=== PATIENT | female | born 1970 | race Caucasian/White ===

== ENCOUNTER 2019-11-26 02:28 | Outpatient (CLI) | payer BC, SELFPAY ==
[2019-11-26 18:16] LABS: SARS-CoV-2 RNA PCR Negative
== END 2019-11-26 02:29 | disposition home or self-care (01) ==
LOC: ANHCOVIDDT 02:28
PROVIDERS: PCP Family Medicine; Visit Provider Obstetrics & Gynecology
DX: Z01.812 Encounter for preprocedural laboratory examination (principal); Z20.828 Contact with and (suspected) exposure to other viral communicable diseases
CPT/HCPCS: 87635; C9803; U0003

== ENCOUNTER 2019-11-28 02:06 | Day surgery (SDC) | payer BC, SELFPAY ==
[2019-11-22 17:17] VITALS: BMI 30.6
[2019-11-28] MEDS: LACTATED RINGERS 1,000 ML 30 ML IV CONT ×2 (11:23→14:38)
[2019-11-28] MEDS: ACETAMINOPHEN 500 MG TABLET 1000 MG PO (11:23)
[2019-11-28 11:36] VITALS: BP 120/71; PULSE 65; TEMP 36.8; O2SAT 100
--- NOTE | 2019-11-28 11:50 | PM.IMHP ---
H&P: HPI History of Present Illness Date/Time: 11/28/19 11:50 Chief complaint: irregular bleeding Narrative: 49 y/o with heavy, long-lasting menses that are becoming more frequent and less predictable. Review of Systems Review of Systems: All systems reviewed & are unremarkable except as noted in HPI and below PMFSH Surgical History Surgical History (Updated 11/28/19 @ 11:51 by Vishnu Orosco MD) History of laparotomy Social History Social History Smoking status: Never smoker Alcohol intake: current Substance use: never Living arrangements: with family Gender identity (if verbalized by the patient): Female Sexual Orientation (if Verbalized by the Patient): Straight or Heterosexual Spiritual care concerns: No Comments 3 vaginal deliveries, largest weighing 8 lbs. Meds Home Medications and Allergies Home Medications Medication Instructions Recorded Confirmed Type No Home Medications 11/22/19 11/22/19 History Allergies Allergy/AdvReac Type Severity Reaction Status Date / Time Sulfa (Sulfonamide AdvReac Severe Hives Verified 11/22/19 17:30 Antibiotics) Vital Signs Vital Signs - 24 hr 11/28/19 11:36 Temperature 36.8 C Pulse Rate 65 Blood Pressure 120/71 Pulse Oximetry 100 Exam Const: Orientation/consciousness: patient oriented x3 Other: Well-developed, well-nourished female in no acute distress. Neck: Thyroid: thyroid normal Lymphatic: no lymphadenopathy noted (in neck, axilla or inguinal nodes) Resp: Effort & Inspection: normal respiratory effort Auscultation: clear to auscultation bilaterally Cardio: Rate: regular rate Rhythm: regular rhythm Heart sounds: S1 normal heart sound present and S2 normal heart sound present GI: Other: ABD: Soft, nontender, nondistended. No guarding or rebound tenderness. No hepatosplenomegaly. : General: Yes no CVA tenderness Other: External genitalia: normal female hair distribution, without lesion. Urethral meatus: no lesion, non prolapsed. Bladder: no mass, nontender Vagina: well-estrogenized, without lesion or discharge. No cystocele or rectocele. Cervix: no lesion or discharge. Uterus: small, anteverted, freely mobile, nontender Adnexa: no mass or tenderness. Anus/perineum: no lesions, nontender Back/Spine/Pelvis: Back: no CVA tenderness Skin: General skin exam: normal color and no rashes or lesions noted Neuro: General: patient oriented x3 Extrem: Other: Extremities: nontender with no edema Psych: Mental Status: mental status grossly normal Affect: normal affect Assessment and Plan Assessment and plan (1) Menometrorrhagia: Code(s): N92.1 - Excessive and frequent menstruation with irregular cycle Status: Acute Additional Plan We reviewed medical and surgical management options. She prefers the latter. Specifically, she would like a hysteroscopy, dilation and sharp curettage, and endometrial ablation. She understands risks of surgery to include risks of anesthesia, risks of pain, infection, bleeding, blood products, thromboembolic phenomena and damage to adjacent structures such as bowel, bladder, ureters, blood vessels and nerves. She understands all these risks and elects to proceed with surgery.
--- NOTE | 2019-11-28 12:12 | WPDHPUPDATE1 ---
History and Physical Update Update Date/Time: 11/28/19 12:12 History and Physical has been reviewed, including an updated exam of the patient. There are NO changes in the patient's condition. Risks, benefits, and alternatives have been discussed and questions answered. Patient agrees to proceed with procedure.
--- NOTE | 2019-11-28 12:51 | WPDANESEPPF ---
Anes - Initial Pre Proc Eval Procedure: Operation Date: 11/28/19 13:00 Proposed Procedures p Hysteroscopy, Dilation and Curettage with Nanette Ablation - Vishnu Orosco MD Date/Time: 11/28/19 12:51 Surgeon: Vishnu Orosco MD Pre Op Diagnosis: irregular bleeding Patient Data Age: 49 Gender: F Height: 5 ft 7 in Weight: 90.6 kg Last Vital Signs Temp 36.8 C 11/28/19 11:36 Pulse 65 11/28/19 11:36 BP 120/71 11/28/19 11:36 Pulse Ox 100 11/28/19 11:36 Allergies Allergy/AdvReac Type Severity Reaction Status Date / Time Sulfa (Sulfonamide AdvReac Severe Hives Verified 11/22/19 17:30 Antibiotics) Home Medications Medication Instructions Recorded Confirmed Type No Home Medications 11/22/19 11/22/19 History Patient hx anesthesia problems: none Family hx anesthesia problems: none [facility] Past Medical History Medical History (Updated 11/28/19 @ 12:51 by Brian Robertson MD) Obesity Surgical History Surgical History (Updated 11/28/19 @ 12:52 by Brian Robertson MD) History of appendectomy History of laparotomy Social History Social History Smoking status: Never smoker Alcohol intake: current Substance use: never Living arrangements: with family Gender identity (if verbalized by the patient): Female Sexual Orientation (if Verbalized by the Patient): Straight or Heterosexual Spiritual care concerns: No Anes - Eval Final PreProcedure Day of Procedure 11/28/19 12:51 Patient weight: obese Heart: regular rate and rhythm Lungs: clear to auscultation Airway: Mallampati scale class II Neurological: alert and oriented Last oral intake: >/= 8 hours ASA classification: II Emergent: no Anesthetic plan: proceed Anesthesia type and monitoring: general GIVS and standard monitoring Informed Consent: The patient's anesthetic plan and its attendant risks and benefits were discussed with the patient/family/POA. Questions were solicited and answers provided to the satisfaction of the patient/family/POA.
[2019-11-28] MEDS: KETOROLAC 30 MG/ML VIAL (*BKC) IV PUSH (14:30)
--- NOTE | 2019-11-28 14:34 | P.OP_ITS ---
Procedure Note - Detailed Date of procedure: 11/28/19 Pre-op diagnosis: irregular bleeding Menometrorrhagia Post-op diagnosis: same Procedure performed: Hysteroscopy Dilation and curettage Endometrial ablation Description of procedure: The patient was taken to the operating room where she was prepared and draped in the usual sterile fashion in the dorsal lithotomy position. The bladder was drained with a red rubber catheter. A sterile speculum was placed into the vagina. The anterior lip of the cervix was grasped with single-tooth tenaculum. Ten mL of 1% lidocaine was administered in a paracervical block. The cervix was then gently dilated using Hegar dilators until an 8 mm dilator could be passed. Hysteroscopy was performed using sterile saline as a distention medium. Findings are as noted above. Sharp curettage was then performed, and endometrial curettings were collected on a Telfa pad and passed off to be sent to pathology. Finally, the the Nanette device was advanced and endometrial ablation commenced without difficulty. The device was withdrawn and a second look was taken using the hysteroscope. Excellent coverage of the endometrial cavity was noted. The tenaculum was removed. Hem ostasis was excellent. Sponge, lap, needle and instrument counts were correct. The patient was awakened and taken to the recovery room in stable condition. I was present and scrubbed through the entire procedure. Implants: None Anesthesia: MAC and local (1% lidocaine) Surgeon: Vishnu Orosco MD Estimated blood loss (mL): 10 Drains: No Packing: No Pathology: yes (endometrial curettings) Complications: None Condition: stable Disposition: PACU Findings: Uterus sounded to a depth of 8.5 cm with a cervical length of 3 cm, giving a subtracted uterine cavity depth of 5.5 cm. Both tubal ostia were seen. The endometrial cavity was unremarkable.
[2019-11-28 14:38] VITALS: BP 122/84; PULSE 64; RESP 14; O2SAT 95
[2019-11-28] MEDS: fentaNYL CITRATE INJ (*CRX) 100 MCG/2 ML VIAL 25 MCG IV PUSH ×4 (14:42→14:58)
[2019-11-28 15:00] VITALS: BP 129/81; PULSE 64; RESP 14; O2SAT 93
[2019-11-28] MEDS: oxyCODONE HCL (*CRX) 5 MG TAB IR PO (15:10)
[2019-11-28 15:30] VITALS: BP 129/74; PULSE 64; RESP 14; O2SAT 94
[2019-11-28 15:50] VITALS: BP 136/76; PULSE 57; RESP 14
== END 2019-11-28 15:59 | disposition home or self-care (01) ==
PROVIDERS: PCP Family Medicine; Visit Provider Obstetrics & Gynecology
PROC: 0U5B8ZZ Destruction of Endometrium, Via Natural or Artificial Opening Endoscopic (ICD-10-PCS; CPT 58563; principal; 2019-11-28 13:00)
DX: N92.1 Excessive and frequent menstruation with irregular cycle (principal); E66.9 Obesity, unspecified; Z68.31 Body mass index [BMI] 31.0-31.9, adult
CPT/HCPCS: 58563; 88305; A9270; J1100; J1885; J2250; J2405; J2704; J3010; J7030; J7120

== ENCOUNTER → 2020-05-17 01:51 | Outpatient (CLI) | payer BC, SELFPAY ==
[2020-05-17 19:34] LABS: SARS-CoV-2 RNA PCR Negative
== END ==
PROVIDERS: PCP Family Medicine; Visit Provider Surgery
DX: Z01.812 Encounter for preprocedural laboratory examination (principal); Z20.822 Contact with and (suspected) exposure to COVID-19
CPT/HCPCS: C9803; U0003; U0005

== ENCOUNTER 2020-05-21 01:39 | Day surgery (SDC) | payer BC, SELFPAY ==
[2020-05-09 12:24] VITALS: BMI 31.0
[2020-05-21] VITALS (8 sets, daily range): BP systolic 107–123; BP diastolic 59–72; PULSE 62–84; RESP 10–16; TEMP 36.4–36.8; O2SAT 93–100
[2020-05-21] MEDS: LACTATED RINGERS 1,000 ML 30 ML IV CONT ×2 (12:05→14:23)
[2020-05-21] MEDS: ACETAMINOPHEN 500 MG TABLET 1000 MG PO (12:23)
[2020-05-21] MEDS: KETOROLAC 15 MG/ML VIAL (*BKC) IV PUSH (12:23)
[2020-05-21 12:27] LABS: Alanine Aminotransferase 16 U/L (4-35); Albumin Level 4.1 g/dL (3.5-5.1); Alkaline Phosphatase 76 U/L (38-126); Amylase 44 U/L (30-110); Aspartate Amino Transferase 26 U/L (14-36); Bilirubin,Total 0.5 mg/dL (0.2-1.3); Lipase 56 U/L (23-300)
--- NOTE | 2020-05-21 12:57 | P.PNAN_ITS ---
Anes - Initial Pre Proc Eval Procedure: Operation Date: 05/21/20 13:30 Proposed Procedures p Laparoscopic Cholecystectomy, Possible Open - Mathieu Vsaquez DO Date/Time: 05/21/20 12:57 Surgeon: Mathieu Vasquez DO Pre Op Diagnosis: Symptomatic Cholelithiasis Patient Data Age: 49 Gender: F Height: 5 ft 7 in Weight: 89.4 kg Last Vital Signs Temp 36.4 C L 05/21/20 12:37 Pulse 76 05/21/20 12:37 Resp 16 05/21/20 12:37 BP 114/72 05/21/20 12:37 Pulse Ox 99 05/21/20 12:37 Allergies Allergy/AdvReac Type Severity Reaction Status Date / Time Sulfa (Sulfonamide AdvReac Severe Hives Verified 05/09/20 12:22 Antibiotics) Home Medications Medication Instructions Recorded Confirmed Type No Home Medications 05/09/20 05/09/20 History Laboratory Tests 05/21/20 11:58 Total Bilirubin 0.5 mg/dL mg/dL (0.2-1.3) Direct Bilirubin 0.0 mg/dL mg/dL (0-0.3) AST 26 U/L U/L (14-36) ALT 16 U/L U/L (4-35) Alkaline Phosphatase 76 U/L U/L (38-126) Total Protein 7.0 g/dL g/dL (6.3-8.2) Albumin 4.1 g/dL g/dL (3.5-5.1) Amylase 44 U/L U/L (30-110) Lipase 56 U/L U/L (23-300) Patient hx anesthesia problems: none Family hx anesthesia problems: none [facility] Past Medical History Medical History GERD (gastroesophageal reflux disease) Obesity Surgical History Surgical History H/O ovarian cystectomy History of appendectomy History of endometrial ablation History of hysteroscopy History of laparotomy Family History Family History Grandparent Heart disease Social History Social History Smoking status: Never smoker Alcohol intake: current Drinks per week: 5 Substance use: never Substance use type: does not use Living arrangements: with family 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 Questions were solicited and answers provided to the satisfaction of the patient/family/POA.
--- NOTE | 2020-05-21 13:00 | WPDHPUPDATE1 ---
History and Physical Update Update Date/Time: 05/21/20 13:00 History and Physical has been reviewed, including an updated exam of the patient. There are NO changes in the patient's condition. Risks, benefits, and alternatives have been discussed and questions answered. Patient agrees to proceed with procedure.
[2020-05-21] MEDS: ceFAZolin 2 GM/D5W 50 ML 2 GM/50 ML BAG IVPB (13:13)
[2020-05-21] MEDS: BUPIVACAINE/EPINEPHRINE 0.5% 30 ML VIAL INFILTRATE (13:45)
--- NOTE | 2020-05-21 14:10 | SUR.OPER ---
Ebl=5ml
--- NOTE | 2020-05-21 14:18 | PM.PROC ---
Procedure Note - Detailed Date of procedure: 05/21/20 Pre-op diagnosis: Symptomatic Cholelithiasis Post-op diagnosis: same Procedure performed: Laparoscopic Cholecystectomy Description of procedure: Procedure as well as risks, benefits, and alternatives were discussed with patient. Written consent was obtained and placed in chart prior to procedure. The patient was brought back to surgical suite. Patient was placed in supine position on operating table. Time-out was done to confirm patient and procedure. Patient was then intubated by the anesthesia department. Abdomen was prepped and draped in sterile fashion using chlorhexidine prep. 0.5% bupivacaine with epinephrine was infiltrated at each site of incision. A 5 millimeter incision was made near the umbilicus, and a 5 millimeter Optiview trocar was advanced through the abdominal layers under direct visualization. Once inside the abdominal cavity, carbon dioxide was insufflated to create a pneumoperitoneum. The camera was inserted and the abdomen was inspected. No immediate abnormalities were identified. The patient was placed in reverse Trendelenburg position and rotated slightly to the left. An 11 millimeter incision was made in the subxiphoid region, and an 11 millimeter trocar was inserted under direct visualization. Two 5 millimeter incisions were made in the right upper quadrant, and two 5 millimeter trocars were inserted under direct visualization. The gallbladder was identified and grasped at the fundus and retracted superiorly. It was then grasped at the infundibulum retracted laterally. Careful dissection around the neck of the gallbladder was performed using blunt dissection with a [place] grasper and hook electrocautery. The cystic duct was identified, and a window was created behind it. The cystic artery was also identified and a window was created behind it. The critical view of safety was identified, visualizing the cystic duct running directly into the neck of the gallbladder, and the cystic artery running directly into the wall of the gallbladder. A 5 millimeter clip public service director was then used to place 2 clips proximally and 1 clip distally on both the cystic duct and cystic artery. They were then both transected using endoscopic scissors. Once safely away from the felicia hepatitis, the gallbladder was dissected free from the liver bed using hook electrocautery. Hemostasis was achieved along the way. The gallbladder was removed completely and then removed through the subxiphoid port. The liver bed was then inspected. Hemostasis appeared adequate, and our clips appeared secure. The area was gently irrigated with sterile saline. No other abnormalities were seen. The patient was flattened out in bed, and 1 final inspection was made around the abdominal cavity. The subxiphoid port was removed, and a Horacio Swapna cone was used to approximate the fascia with an 0-Vicryl simple interrupted suture. The remaining ports were then removed under direct visualization, the camera was removed, and the pneumoperitoneum was released. The skin of the incisions was approximated using 4-0 Monocryl subcuticular sutures. Exofin glue was applied on top. The patient was then awakened from anesthesia, extubated, and transferred to recovery. Anesthesia: GETA and local (0.5% bupivicaine with epi) Surgeon: Mathieu Vasquez DO Estimated blood loss (mL): 5 Drains: No Packing: No Pathology: yes Complications: No immediate complications Condition: stable (Patient tolerated procedure well, and is currently resting comfortably in recovery.) Disposition: same day Findings: This is a 49-year-old woman who presented with epigastric abdominal pain for the past 2 months. She has noticed this more frequently after eating. She had previously undergone workup which included a an ultrasound which showed evidence of a 7 mm polyp or stone within her gallbladder. She continued to have the symptoms and discussions were
[2020-05-21] MEDS: fentaNYL CITRATE INJ (*CRX) 100 MCG/2 ML VIAL 25 MCG IV PUSH ×2 (14:55→15:03)
[2020-05-21] MEDS: oxyCODONE HCL (*CRX) 5 MG TAB IR PO (15:30)
== END 2020-05-21 16:24 | disposition home or self-care (01) ==
PROVIDERS: PCP Family Medicine; Visit Provider Surgery
PROC: 0FT44ZZ Resection of Gallbladder, Percutaneous Endoscopic Approach (ICD-10-PCS; CPT 47562; principal; 2020-05-21 13:30)
DX: K81.1 Chronic cholecystitis (principal); K21.9 Gastro-esophageal reflux disease without esophagitis; E66.9 Obesity, unspecified; Z68.30 Body mass index [BMI] 30.0-30.9, adult
CPT/HCPCS: 47562; 36415; 80076; 82150; 83690; 86850; 86900; 86901; 88304; A9270; J0690; J1100; J1170; J1885; J2250; J2405; J2704; J3010; J7030; J7120